=== PATIENT | female | born 2000 | race Two or more races ===

== ENCOUNTER 2024-01-15 17:14 | Inpatient (IN) | payer OTHER ==
[~2024-01-15] VITALS: Ht 149.9 cm; Wt 104.8 kg
[2024-01-15] MEDS ORDERED: 0.9 % SODIUM CHLORIDE 500 ML IV ONE (19:15)
[2024-01-15 20:37] LABS: HEMOGLOBIN 14.2 g/dL (12.0-15.00); MEAN CELL VOLUME 87.4 fL (80.00-100.00); MEAN CORPUSCULAR HEMOGLOBIN 30.2 pg (27.00-32.0); MEAN CORPUSCULAR HGB CONC 34.5 g/dl (32.0-36.0); PLATELET COUNT 53 K/uL (150-450); RED BLOOD COUNT 4.69 M/uL (4.00-6.00); RED CELL DISTRIBUTION WIDTH 13.9 % (11.5-14.5)
[2024-01-15 20:42] LABS: URINE APPEARANCE Clear; URINE BILIRRUBIN Negative (NEGATIVE); URINE BLOOD Negative; URINE COLOR Yellow; URINE GLUCOSE Negative (NEGATIVE); URINE KETONE Trace (NEGATIVE); URINE LEUKOCYTE Negative; URINE NITRATE Negative; URINE PROTEIN Negative (NEGATIVE); URINE UROBILINOGEN 0.2 E.U./dl
[2024-01-15 20:47] LABS: URINE EPITHELIAL CELLS 8.3 uL (0.0-38.8); URINE RBC 15.4 uL (0.0-20.8); URINE WBC 5.2 uL (0.0-23.2)
[2024-01-15 20:51] LABS: INR 1.01; PARTIAL THROMBOPLASTIN TIME 29.4 SECONDS (22.0-34.0)
[2024-01-15 20:58] LABS: ALBUMIN 4.1 gm/dL (3.4-5.0); BILIRUBIN TOTAL 0.48 mg/dL (0.3-1.2); CALCIUM 9.6 mg/dL (8.5-10.1); CREATININE SERUM 0.74 mg/dL (0.55-1.02); GFR 95.62; GLOBULINA 4.4 G/DL (2.4-3.5); POTASSIUM 3.97 mEq/L (3.5-5.1); TOTAL PROTEIN 8.5 gm/dL (6.4-8.2)
[2024-01-15] MEDS ORDERED: HYDROXYCHLOROQUINE SULFATE 200 MG TABLET PO SCH (22:07)
[2024-01-15] MEDS ORDERED: 0.9 % SODIUM CHLORIDE 1,000 ML IV SCH (22:15)
[2024-01-15] MEDS ORDERED: METHYLPREDNISOLONE SOD SUCC 125 MG VIAL IV ONE (22:15)
[2024-01-15] MEDS ORDERED: ACETAMINOPHEN 500 MG GEL..CAP PO PRN (22:30)
[2024-01-16 06:19] LABS: HEMATOCRIT 44.1 % (36.0-45.00); MEAN CELL VOLUME 88.2 fL (80.00-100.00); MEAN CORPUSCULAR HEMOGLOBIN 29.9 pg (27.00-32.0); MEAN CORPUSCULAR HGB CONC 33.9 g/dl (32.0-36.0); RED CELL DISTRIBUTION WIDTH 13.4 % (11.5-14.5)
[2024-01-16 06:51] LABS: PLATELET COUNT 32 K/uL (150-450)
[2024-01-16 07:21] LABS: COL EPI 163 SECONDS (82-175)
[2024-01-16 07:41] LABS: MANUAL PLATELET COUNT 66
[2024-01-16] MEDS ORDERED: METHYLPREDNISOLONE SOD SUCC 125 MG VIAL IV SCH (09:00)
[2024-01-16] MEDS ORDERED: PANTOPRAZOLE SODIUM 40 MG/VIAL VIAL IV SCH (09:00)
[2024-01-16 10:09] VITALS: BP 118/78; O2SAT 99
[2024-01-16 16:45] VITALS: BP 106/69; O2SAT 100
[2024-01-17 01:02] VITALS: BP 100/60; O2SAT 98
[2024-01-17 08:40] LABS: HEMATOCRIT 36.9 % (36.0-45.00); HEMOGLOBIN 12.2 g/dL (12.0-15.00); MEAN CELL VOLUME 88.3 fL (80.00-100.00); MEAN CORPUSCULAR HEMOGLOBIN 29.2 pg (27.00-32.0); MEAN CORPUSCULAR HGB CONC 33.1 g/dl (32.0-36.0); RED BLOOD COUNT 4.18 M/uL (4.00-6.00); RED CELL DISTRIBUTION WIDTH 13.6 % (11.5-14.5)
[2024-01-17 08:41] LABS: PLATELET COUNT 52 K/uL (150-450)
[2024-01-17 08:43] VITALS: BP 106/72
[2024-01-17] MEDS ORDERED: METHYLPREDNISOLONE SOD SUCC 125 MG VIAL IV SCH (09:00)
[2024-01-17] MEDS ORDERED: FAMOTIDINE/PF 20 MG/2 ML VIAL IV SCH (17:00)
[2024-01-17 17:20] VITALS: BP 112/71
[2024-01-18 01:01] VITALS: BP 109/71; O2SAT 97
[2024-01-18 07:30] LABS: HEMATOCRIT 36.1 % (36.0-45.00); HEMOGLOBIN 12.4 g/dL (12.0-15.00); MEAN CELL VOLUME 87.1 fL (80.00-100.00); MEAN CORPUSCULAR HEMOGLOBIN 29.9 pg (27.00-32.0); MEAN CORPUSCULAR HGB CONC 34.3 g/dl (32.0-36.0); RED BLOOD COUNT 4.15 M/uL (4.00-6.00); RED CELL DISTRIBUTION WIDTH 13.4 % (11.5-14.5)
[2024-01-18 07:43] LABS: PLATELET COUNT 82 K/uL (150-450)
[2024-01-18 08:14] VITALS: BP 115/79; O2SAT 97
[2024-01-18] MEDS ORDERED: HYDROXYCHLOROQ200 MG PO (11:05)
[2024-01-18] MEDS ORDERED: RAYOS5 MG PO (11:05)
== END 2024-01-18 13:10 | disposition home or self-care (01) | DRG 813 ==
LOC: ER 17:16 → SEC-K 22:17 → MEDI 22:17
PROVIDERS: General Practice; Internal Medicine; Nurse Practitioner Family; ADMIT Internal Medicine; ATTEND Internal Medicine
PROC: BW40ZZZ Ultrasonography of Abdomen (ICD-10-PCS; principal; 2024-01-15)
DX: D69.6 Thrombocytopenia, unspecified (principal); M32.9 Systemic lupus erythematosus, unspecified; D69.3 Immune thrombocytopenic purpura; Z20.822 Contact with and (suspected) exposure to COVID-19